=== PATIENT | male | born 2000 | race Caucasian/White ===

== ENCOUNTER 2020-05-01 10:23 | Emergency (ER) | payer OTHER ==
[~2020-05-01] VITALS: Ht 182.9 cm; Wt 113.4 kg
[2020-05-01] MEDS ORDERED: LAMISIL AT 1% C12 G1 TOP (11:05)
[2020-05-01] MEDS ORDERED: DIFLUCAN150 MG PO (11:05)
[2020-05-01] MEDS ORDERED: KEFLEX500 M1 PO (11:05)
[2020-05-01] MEDS ORDERED: LAMISIL AF133 GM TOP (11:05)
[2020-05-01 11:10] VITALS: BP 142/76
== END 2020-05-01 11:10 | disposition home or self-care (01) ==
LOC: M.ERS 10:23
DX: L73.8 Other specified follicular disorders (principal); B35.6 Tinea cruris

== ENCOUNTER 2020-09-20 12:55 | Emergency (ER) | payer OTHER ==
[~2020-09-20] VITALS: Ht 182.9 cm; Wt 113.4 kg
[~2020-09-20 12:55] MED LIST: DIFLUCAN150 MG PO; KEFLEX500 M1 PO; LAMISIL AF133 GM TOP; LAMISIL AT 1% C12 G1 TOP
[2020-09-20] MEDS ORDERED: MAGIC MOUTHWASH SWISH&SPIT ×2 (13:58→14:04)
[2020-09-20 14:27] VITALS: BP 120/64
== END 2020-09-20 14:36 | disposition home or self-care (01) ==
LOC: M.ERS 12:55
DX: J02.0 Streptococcal pharyngitis (principal)